=== PATIENT | female | born 1990 | race Caucasian/White ===

== ENCOUNTER 2017-06-23 15:25 | Emergency (ER) | payer OTHER ==
[~2017-06-23] VITALS: Ht 160 cm; Wt 107.0 kg
[2017-06-23 16:51] VITALS: Ht 160 cm; Wt 107.0 kg
[2017-06-23 20:30] VITALS: BP 128/76
== END 2017-06-23 22:56 | disposition home or self-care (01) ==
LOC: ED 15:25
DX: S46.911A Strain of unspecified muscle, fascia and tendon at shoulder and upper arm level, right arm, initial encounter (principal); X50.0XXA Overexertion from strenuous movement or load, initial encounter; Y93.89 Activity, other specified; Y99.8 Other external cause status; Y92.89 Other specified places as the place of occurrence of the external cause